=== PATIENT | male | born 1965 | race Caucasian/White ===

== ENCOUNTER 2018-03-15 20:33 | Inpatient (IN) | payer OTHER ==
[~2018-03-15] VITALS: Ht 182.9 cm; Wt 114.3 kg
[~2018-03-15 20:33] MED LIST: ALLOPURINOL300 M1 PO; LISINOPRIL10 M1 PO; LORAZEPAM0.5 M1 PO; METFORMIN HCL500 M3 PO; NAPROXEN500 M2 PO; PERCOCET 5-3251 EACH PO; SEROQUEL200 M1 PO
[2018-03-15 21:00] VITALS: BP 153/96
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
[2018-03-15 21:25] LABS: ABSOLUTE BASOPHIL COUNT 0 /CUMM (0.0-0.2); ABSOLUTE EOSINOPHIL COUNT 0.1 /CUMM (0.0-0.7); ABSOLUTE GRANULOCYTE CT 2.6 /CUMM (1.4-6.5); ABSOLUTE LYMPH COUNT 0.7 /CUMM (1.2-3.4); ABSOLUTE MONOCYTE COUNT 0.5 /CUMM (0.10-0.60); BASOPHIL % 0.6 % (0.0-2.0); EOSINOPHIL % 2.6 % (0-5); HEMATOCRIT 44.2 % (42-52); MEAN CORPUSCULAR HGB 31.7 PG (27.0-31.0); MEAN CORPUSCULAR HGB CONC 33.8 G/DL (33.0-37.0); MEAN CORPUSCULAR VOLUME 93.8 FL (80.0-94.0); MEAN PLATELET VOLUME 7.2 FL (7.4-10.4); PLATELET COUNT 202 /CUMM (130-400); RBC DISTRIBUTION WIDTH 14.4 % (11.5-14.5); RED BLOOD CELL CT 4.71 /CUMM (4.70-6.10); WHITE BLOOD CELL COUNT 3.9 /CUMM (4.8-10.8)
[2018-03-15 22:45] VITALS: BP 108/54
[2018-03-16] VITALS (11 sets, daily range): BP systolic 118–163; BP diastolic 68–93
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
[2018-03-16] MEDS ORDERED: PANTOPRAZOLE SO40 M1 PO (20:34)
[2018-03-16] MEDS ORDERED: TRAZODONE HCL150 M1 PO (20:35)
[2018-03-16] MEDS ORDERED: IBUPROFEN800 M1 PO (20:36)
[2018-03-16] MEDS ORDERED: DOXYCYCLINE HY100 M2 PO (20:38)
[2018-03-16] MEDS ORDERED: PERCOCET 5-3251 EACH PO (20:39)
[2018-03-16] MEDS ORDERED: METFORMIN HCL500 M3 PO (20:47)
[2018-03-16] MEDS ORDERED: LISINOPRIL10 M1 PO (20:51)
[2018-03-16] MEDS ORDERED: ZYPREXA5 M1 PO (20:53)
[2018-03-16] MEDS ORDERED: LEXAPRO5 M1 (20:54)
[2018-03-17] VITALS (12 sets, daily range): BP systolic 139–172; BP diastolic 79–95
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
[2018-03-18] VITALS (8 sets, daily range): BP systolic 134–142; BP diastolic 77–93
--- NOTE | 2018-03-18 09:05 | CP SOUTH PROGRESS NOTE PSYCH ---
Psych (Inpt) Progress Note Progress Note Mental Status Examination steady gait overweight calm and cooperative normal Behavior: normal Quality of speech: normal Affect good range Mood:depressed The patient denied thoughts of suicide. The patient denied violent thoughts or thoughts of homicide. The patient denied hallucinations. He denied feeling paranoid, and he did not seem to have any paranoid delusions, there were no other delusions. The patient was coherent and did not have difficulties with thought organization : He showed reasonable insight and judgment today. He was alert and oriented to time, place, and person. There was no evidence of short-term memory impairment today. Assessment: 52-year-old white male with alcohol use disorder and depression DSM 5 Diagnosis(es): Unspecified bipolar alcohol use dis, severe Treatment Plan: reduce CIWA to Q 4hours/alcohol detox depends on sobriety Orientation: oriented x 3 Cognition: minor attention difficulties Memory Function: no gross deficits Estimate of intellectual functioning: average Assets/Strengths Patient Identified Assets/Strengths: resilient Impression/Plan Impression and Plan: 52-year-old white male with alcohol use disorder and depression - Include all active medical diagnosis that require tx DSM 5 Diagnosis(es): Unspecified bipolar alcohol use dis, severe - Initial Tx Plan for Active Psych & Medical Conditions Treatment Plan: inpatient psych alcohol detox
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
[2018-03-19 07:55] VITALS: BP 140/80
[2018-03-19 12:22] VITALS: BP 145/84
[2018-03-19 12:24] VITALS: BP 140/80; BP 145/84
[2018-03-19] MEDS ORDERED: LISINOPRIL10 M1 PO (12:59)
[2018-03-19] MEDS ORDERED: GABAPENTIN300 M2 PO (12:59)
[2018-03-19] MEDS ORDERED: TRAZODONE HCL100 M1 PO (13:00)
[2018-03-19] MEDS ORDERED: ZOLOFT100 M1 PO (13:00)
[2018-03-19] MEDS ORDERED: METFORMIN HCL500 M3 PO (13:05)
[2018-03-19] MEDS ORDERED: ATIVAN0.5 M1 PO (13:05)
--- NOTE | 2018-03-19 13:10 | SOCIAL WORKER PROG NOTE PSYCH ---
Social Work Progress Note Progress Note Leeroy shared that he has been drinking heavily over the past month. He reports 4 pints of vodka and 2 six packs of beer daily. He was going to work intoxicated and had showed up at his therapists intoxicated. He had a DUI and is scheduled for court tomorrow in [place]. He would like to attend [facility] and get to court tomorrow if possible. Denies current cravings for alcohol and denies withdrawal symptoms. States reasons for drinking revolve around family issues. States his 2 children don't like to talk to him unless they want something. They are grown 24 and 26 years old. He also said he hasn't talked to his Mother in a couple of months either. He said he has been more depressed lately due to some of these issues. He currently lives with his significant other Kristen. They have been together for a little over a year. He denies current SI and states he did make statements apparently under the influence. He talked about wanting help with that. He has been successful in IOP before and is interested in returning to [facility]. He advocated for leaving today to get to him court date tomorrow. Offered to call and speak to Kristen about any concerns she may have surrounding d/ c. Leeroy was okay with a phone conference. Kristen shared that her concerns were related to the possibility of him relapsing. She has no safety concerns when he is not drinking. Dr. Montemayor was there for part of this phone conference as well. Dr. Montemayor let Leeroy know he can order some Naltexone if he is interested to help curb cravings. Leeroy was open to giving that a try. Discussed d/c for today with an [facility] intake tomorrow if one is available in the afternoon. Kristen was okay with picking him up later today around 6pm. Offered Leeroy a list of individual therapists to look at if he has a problem returning to his therapist in [place] due to transportation. Also talked about him being able to utilize [facility]. Leeroy took the list of local therapists and the phone number for [facility]. Mood appears stable to go at this time. Denies any thoughts to hurt himself. An intake at [facility] is scheduled for Tuesday 03/20 at 1:15pm.
--- NOTE | 2018-03-19 13:24 | Patient Discharge Instructions ---
Psych Discharge Inst General Discharge Information Reason for Admission: thoughts of suicide while under the influence Psy Discharge Primary Diag+ unspecified depressive di Psy Discharge Secondary Diag+ Alcohol Use Disorder, Sev Summary Tests/Major Procedures Lab Cholesterol 214 MG/DL H 03/15/182117 Cholesterol/HDL Ratio 4 % 03/15/182117 HDL Cholesterol 53 mg/dL 03/15/182117 Hemoglobin A1c 5.4 % 03/15/182117 LDL Cholesterol Direct 82.06 mg/dL 03/15/182117 LDL Cholesterol, Calc ND mg/dL 03/15/182117 Triglycerides 684 mg/dL H 03/15/182117 Studies Pending at DC: None Patient Instructions Contact Information Your Psychiatrist on [facility] was Sim MYLES,Chauncey * If you are experiencing an emergency related to this hospitalization, please call [phone] to contact the treating psychiatrist or the psychiatrist-on- call. * To Request a copy of your medical records, please contact the Medical Records Department at [phone]. * To request results of studies pending at the time of discharge, please call [phone]. * Continue your Medications until directed to stop by your Healthcare provider. General Medication Information Please continue to take your new medications and your continued home medications , unless otherwise indicated on your discharge medication list, or unless directed by your MD or TRIMMING PRESS OPERATOR to stop them. Special Instructions Diet Diabetic Activity Normal - Tobacco Use Treatment Offered Post DC Medications Offered: Not Applicable Post DC Tobacco Treatment Plan: Not Applicable - EtOH/Drug Use D/O Treatment Offered Post DC Medications Offered: Script Given-See Med List Post DC EtOH/SubAbuse [place] Plan: [facility] SubAbuse/Dual IOP Metabolic Screening ([X]) Not Applicable, patient not on a neuroleptic. Advance Directives Does the Patient have Medical Advance Directives No/Refused further info Does Pt have Psychiatric Advance Directives? No/Refused further info Does Patient have a Designated Surrogate Decision Maker: No Information About Psychiatric Advance Directives Provided? Refused Discharge Plan Post Hospital Treatment Plan: Dual IOP
[2018-03-19 16:26] VITALS: BP 145/82
[2018-03-19 16:27] VITALS: BP 145/82
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
== END 2018-03-19 17:48 | DRG 754 ==
LOC: ERH 20:33 → ERHI 03-16 14:54 → CP SOUTH 03-16 14:54 → EDBEDREQ 03-16 15:21 → ENTRNSPT 03-16 17:36 → CP SOUTH 03-16 17:37 → CMPTRNSPT 03-16 17:51 → ENRESERV 03-16 23:59 → CP SOUTH 03-19 17:48
PROVIDERS: Emergency Medicine
DX: F32.9 Major depressive disorder, single episode, unspecified (principal); F10.10 Alcohol abuse, uncomplicated
CPT/HCPCS: 80307; G0480; J3490

== ENCOUNTER 2018-05-19 20:45 | Emergency (ER) | payer OTHER ==
[~2018-05-19] VITALS: Ht 182.9 cm; Wt 108.9 kg
[~2018-05-19 20:45] MED LIST changes: +ATIVAN0.5 M1 PO; +ATIVAN1 M1 PO; +DOXYCYCLINE HY100 M2 PO; +GABAPENTIN300 M2 PO; +IBUPROFEN800 M1 PO; +LEXAPRO5 M1; +NEURONTIN300 M1 PO; +PANTOPRAZOLE SO40 M1 PO; +TRAZODONE HCL100 M1 PO; +TRAZODONE HCL150 M1 PO; +ZOLOFT100 M1 PO; +ZYPREXA5 M1 PO
--- NOTE | 2018-05-19 21:13 | ED PSYCHIATRIC COMPLAINT ---
History of Present Illness General Chief Complaint: General Adult Stated Complaint: PT IS NOT FEELING GOOD Source: patient, old records Exam Limitations: no limitations Vital Signs & Intake/Output Vital Signs & Intake/Output Vital Signs Date Time Temp Pulse Resp B/P B/P Pulse O2 O2 Flow FiO2 Mean Ox Delivery Rate 05/20 0649 98.0 72 18 133/79 98 Room Air 05/20 0415 97.3 68 18 143/82 98 Room Air 05/20 0217 98.3 72 18 116/68 05/20 0216 98.3 72 18 116/68 97 Room Air 05/20 0028 98.5 80 18 117/69 05/20 0008 98.5 80 18 117/69 98 Room Air 05/19 2249 97.8 73 18 126/73 05/19 2230 97.8 73 18 126/73 97 Room Air 05/19 2130 Room Air Room Air 05/19 2059 97.3 79 16 142/96 97 Room Air ED Intake and Output 05/20 0000 05/19 1200 Intake Total Output Total Balance Patient 240 lb Weight Weight Reported by Patient Measurement Method Allergies Coded Allergies: No Known Allergies (04/27/16) Reconcile Medications Gabapentin (Neurontin) 300 MG CAPSULE 2 CAP PO BID ANXIETY (Reported) Gabapentin 300 MG CAPSULE 3 CAP PO TID ANXIETY (Reported) Lisinopril 10 MG TABLET 1 TAB PO DAILY HTN Lorazepam 0.5 MG TABLET 1 TAB PO QPM SLEEP HELP (Reported) LORazepam (Ativan) 1 MG TAB 1 TAB PO TID withdrawal day 1: 1 tab 3x/day day 2: 1 tab 2x/day day 3: 1 tab day 4: 1 tab Metformin HCl 500 MG TABLET 500 MG PO DAILY DM Sertraline HCl (Zoloft) 100 MG TABLET 1 TAB PO DAILY anxiety/depression Trazodone HCl 100 MG TABLET 100 MG PO 2000 insomnia Triage Note: PT REPORTS TO FEEL SUICIDAL. + ETOH ABUSE, LAST DRANK 2 HRS AGO. STATED TO DRINK SEVERAL PINTS OF VODKA DAILY. Triage Nurses Notes Reviewed? yes HPI: 52M PMH EtOH abuse presents with alcohol intoxication, depression, and suicidal ideation. Giving minimal history, refusing to answer questions. NO active complaints, last drink 2 hours prior. +SI. (Marleny MYLES,Blake) Past History Travel History Traveled to [place] past 21 day No Medical History Any Pertinent Medical History? see below for history Neurological: delerium tremens, ETOH W/D SZ'S EENT: NONE Cardiovascular: hypertension, myocardial infarction Respiratory: NONE Gastrointestinal: NONE Hepatic: NONE Renal: NONE Musculoskeletal: NONE Psychiatric: bipolar disease, depression, ETOH Endocrine: diabetes Blood Disorders: NONE Cancer(s): LYMPHOMA BAG VALVER/Reproductive: NONE History of MRSA: No History of VRE: No History of CDIFF: No Tetanus Vaccine: 09/02/17 Surgical History Surgical History: right knee replacement Psychosocial History Who do you live with Family What is your primary language Tajik Tobacco Use: Never used Family History Family History, If Any: Relation not specified for: *No pertinent family history Hx Contributory? No (Blake Farmer MD) Review of Systems Review of Systems Constitutional: Reports: no symptoms. EENTM: Reports: no symptoms. Respiratory: Reports: no symptoms. Cardiovascular: Reports: no symptoms. GI: Reports: no symptoms. Genitourinary: Reports: no symptoms. Musculoskeletal: Reports: no symptoms. Skin: Reports: no symptoms. Neurological/Psychological: Reports: no symptoms. Hematologic/Endocrine: Reports: no symptoms. Immunologic/Allergic: Reports: no symptoms. All Other Systems: Reviewed and Negative (Blake Farmer MD) Physical Exam Physical Exam General Appearance: well developed/nourished, anxious, mild distress, intoxicated Head: atraumatic, normal appearance Eyes: Bilateral: normal appearance, PERRL, EOMI. 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 yes (Blake Farmer MD) SAD PERSONS SAD PERSONS Response Value Male Sex? yes 1 Previous Attempts/Psych Care yes 1 Rational Thinking Loss? yes 2 Organized/Serious Attempt yes 2 Total 6 SAD PERSONS Done? yes (Kalpana MYLES,Rico Crump) Progress Differential Diagnosis: dementia, drug intoxication, drug overdose, drug withdrawal, electrolyte abnormality, encephalitis, hypoglycemia, hypothyroidism, IC hem/mass/tumor, meningitis Plan of Care: Orders Procedure Date/time Status Heart Healthy Diet 05/20 B Active ED CRISIS PSYCH CONSULT 05/19 2224 Active Continuous Observation Monitor 05/19 2125 Active CIWA 05/19 2112 Active URINE DRUG SCREEN FOR ER ONLY 05/19 2112 Complete ETHANOL 05/19 2112 Complete COMPREHENSIVE METABOLIC PANEL 05/19 2112 Complete CBC WITHOUT DIFFERENTIAL 05/19 2112 Complete Laboratory Tests 05/19/182144: Anion Gap 12, Estimated GFR > 60, BUN/Creatinine Ratio 18.0, Glucose 111 H, Calcium 8.8, Total Bilirubin 0.3, AST 55, ALT 65, Alkaline Phosphatase 56, Total Protein 6.5, Albumin 4.2, Globulin 2.3, Albumin/Globulin Ratio 1.8, CBC w Diff NO MAN DIFF REQ, RBC 4.49 L, MCV 91.3, MCH 32.0 H, MCHC 35.1, RDW 13.3, MPV 7.6, Gran % 71.7, Lymphocytes % 16.5 L, Monocytes % 8.7, Eosinophils % 2.5, Basophils % 0.6, Absolute Granulocytes 3.5, Absolute Lymphocytes 0.8 L, Absolute Monocytes 0.4, Absolute Eosinophils 0.1, Absolute Basophils 0, Serum Alcohol 243.0 05/19/182128: Urine Opiates Screen < 100, Methadone Screen < 40, Barbiturate Screen < 60, Ur Phencyclidine Scrn < 6.00, Amphetamines Screen < 100, U Benzodiazepines Scrn < 85, Urine Cocaine Screen < 50, Urine Cannabis Screen < 5.00 (Marleny MYLES,Blake) Initial ED EKG: none (Rico Villeda DO) Comments: 05/20/2018 8:00:50 AM patient signed out to me by Dr. 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 Leeroy wishes to leave. He admits to heavy alcohol intake with a resulting argument with his fiance with whom he lives. He denies suicide intent currently. He acknowledges a full wishes of his actions last night. He denies any prior suicide attempts. He has a job currently. He feels he has a stable home situation with his fiance. He tells me that he spoke with her roughly an hour ago and she is expecting his return. He denies past history of depression or currently feeling depressed. He has declined crisis evaluation for alcohol use or other psychiatric issues such as depression. I feel he shows good insight into last night's activities and has assured me that he is safe for discharge. The patient's sad persons score is calculated at 6 revealing moderate risk I feel most of this was due to his acute alcohol intoxication. (Kalpana MYLES,Rico Crump) Departure Departure Condition: Stable Referrals: Matt MYLES,Henny (PCP/Family) (Marleny MYLES,Blake) Departure Comments 05/20/18 4 AM The patient was signed out to me at 7 PM. He will be signed out to Dr. Acuna at 7 AM. He is pending evaluation and disposition by crisis. (Ronal FRASER,Rico Miller) Departure Disposition: HOME OR SELF CARE Clinical Impression Primary Impression: Alcohol intoxication Qualifiers: Complication of substance-induced condition: uncomplicated Qualified Code: F10.920 - Alcohol use, unspecified with intoxication, uncomplicated Secondary Impressions: Poor impulse control, Suicidal ideation Additional Instructions: Try to cut down on your alcohol intake. Follow-up with your primary care physician for reevaluation this week. Return if any concerns or sudden worsening. Please note that there might be incidental findings in your evaluation that are unrelated to the current emergency department visit. Please notify your primary care doctor about this emergency department visit in order to obtain and review all of the testing performed so that these incidental findings can be monitored as needed. If you had an x-ray performed, please understand that some fractures or other findings may not be seen on the initial set of x-rays. If your symptoms persist you might need a repeat set of x-rays to check for such a fracture. If you had a laceration evaluated, please understand that foreign bodies such as glass or wood may not be visible to the naked eye or on plain x-rays. If the wound becomes red, swollen, increasingly more painful or if there is any drainage from the wound, please have it reevaluated by a physician for the possibility of a retained foreign body. If you're unable to follow up as outlined in the discharge instructions please return to the emergency department. Thank you for choosing the [facility] Emergency Department for your care. It was a pleasure to serve you today. Rico Acuna M.D. [facility] Departure Forms: COUNSELING SERVICES REFERENCE Customer Survey DETOX FACILITIES LIST General Discharge Information (Kalpana MYLES,Rico Crump)
[2018-05-19 21:55] LABS: ABSOLUTE BASOPHIL COUNT 0 /CUMM (0.0-0.2); ABSOLUTE EOSINOPHIL COUNT 0.1 /CUMM (0.0-0.7); ABSOLUTE GRANULOCYTE CT 3.5 /CUMM (1.4-6.5); ABSOLUTE LYMPH COUNT 0.8 /CUMM (1.2-3.4); ABSOLUTE MONOCYTE COUNT 0.4 /CUMM (0.10-0.60); BASOPHIL % 0.6 % (0.0-2.0); EOSINOPHIL % 2.5 % (0-5); GRANULOCYTE % 71.7 % (42.2-75.2); MEAN CORPUSCULAR HGB CONC 35.1 G/DL (33.0-37.0); MEAN CORPUSCULAR VOLUME 91.3 FL (80.0-94.0); MEAN PLATELET VOLUME 7.6 FL (7.4-10.4); PLATELET COUNT 185 /CUMM (130-400); RBC DISTRIBUTION WIDTH 13.3 % (11.5-14.5); RED BLOOD CELL CT 4.49 /CUMM (4.70-6.10); WHITE BLOOD CELL COUNT 4.8 /CUMM (4.8-10.8)
[2018-05-20 08:06] VITALS: BP 120/74
== END 2018-05-20 08:07 ==
LOC: ERH 20:45
PROVIDERS: Internal Medicine
DX: F10.129 Alcohol abuse with intoxication, unspecified (principal)
CPT/HCPCS: 80307; G0480

== ENCOUNTER 2018-06-09 11:43 | Observation (INO) | payer OTHER ==
[~2018-06-09] VITALS: Ht 175.3 cm; Wt 90.7 kg
--- NOTE | 2018-06-09 11:52 | ED PSYCHIATRIC COMPLAINT ---
History of Present Illness General Chief Complaint: Psychiatric Related Complaint Stated Complaint: "I JUST DONT FEEL GOOD, LIFE ISNT GOOD" Source: patient, old records Exam Limitations: intoxication Vital Signs & Intake/Output Vital Signs & Intake/Output Vital Signs Date Time Temp Pulse Resp B/P B/P Pulse O2 O2 Flow FiO2 Mean Ox Delivery Rate 06/10 1000 98.6 86 18 163/82 98 Room Air 08/05 0959 98.6 86 18 163/82 08/05 0739 97.9 80 18 128/72 08/05 0738 97.9 80 18 128/72 98 Room Air 08/05 0602 98.2 84 18 132/70 08/05 0602 98.2 84 18 132/70 97 Room Air 08/05 0406 98.1 83 18 140/84 08/05 0404 98.1 83 18 140/84 97 Room Air 08/05 0132 98.1 92 20 128/72 08/05 0132 98.1 92 20 128/72 96 Room Air 08/04 2326 98.1 94 16 117/67 99 Room Air 08/04 2325 98.1 94 16 117/67 08/04 2154 Room Air 08/04 2152 98.2 93 18 137/76 08/04 2151 98.2 93 18 137/76 97 Room Air 08/04 1929 105 18 146/84 97 Room Air 08/04 1739 157/102 08/04 1623 98.2 94 18 157/102 98 Room Air 08/04 1622 98.2 94 18 157/102 08/04 1431 97.7 88 18 123/73 95 Room Air 08/04 1213 Room Air 08/04 1146 96.5 90 15 150/99 94 Room Air ED Intake and Output 06/10 0000 0804 1200 Intake Total Output Total Balance Patient 200 lb 260 lb Weight Weight Reported by Patient Measurement Method Allergies Coded Allergies: No Known Allergies (04/27/16) Reconcile Medications Carbamazepine (Tegretol XR) 200 MG TAB.ER.12H 1 TAB PO BID UNKN (Reported) Gabapentin (Neurontin) 300 MG CAPSULE 2 CAP PO BID ANXIETY (Reported) Gabapentin 300 MG CAPSULE 3 CAP PO TID ANXIETY (Reported) Lisinopril 10 MG TABLET 1 TAB PO DAILY HTN [place] Carbonate 600 MG CAPSULE 1 CAP PO DAILY MENTAL HEALTH (Reported) Lorazepam 0.5 MG TABLET 1 TAB PO QPM SLEEP HELP (Reported) Melatonin 10 MG TABLET 1 TAB PO QPM SUPPLEMENT (Reported) Metformin HCl 500 MG TABLET 500 MG PO DAILY DM Naltrexone HCl 50 MG TABLET 1 TAB PO QAM MENTAL HEALTH (Reported) Rosuvastatin Calcium (Crestor) 20 MG TABLET 1 TAB PO DAILY CHOL (Reported) Sertraline HCl (Zoloft) 100 MG TABLET 1 TAB PO DAILY anxiety/depression Trazodone HCl 150 MG TABLET 1 TAB PO QPM MENTAL HEALTH/SLEEP (Reported) Triage Note: PT TO ED, ADMITS TO HEAVY ETOH USE TODAY. STATES, "LIFE ISNT GOOD." "DONT WANT TO DRINK ANYMORE." DENIES SI/HI. Triage Nurses Notes Reviewed? yes Onset: Gradual Duration: constant Severity: severe Severity Numbers: 10 HPI: Patient is a 52-year-old male with a past medical history of alcohol abuse depression suicide ideation type 2 diabetes with neuropathy non-Hodgkin's lymphoma, hypertension who presents emergency room with concerns of significant alcohol ingestion prior to arrival and requests of alcohol detox and suicide ideation and depression. Patient does not recall his last seizure however does have a seizure history from previous records from withdrawal of EtOH. Denies any homicidal ideation patient's history is limited due to intoxication (Ariel Seaman) Past History Travel History Traveled to [place] past 21 day No Medical History Any Pertinent Medical History? 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 No (Ariel Seaman) Review of Systems Review of Systems Constitutional: Reports: no symptoms. EENTM: Reports: no symptoms. Respiratory: Reports: no symptoms. Cardiovascular: Reports: no symptoms. GI: Reports: no symptoms. Genitourinary: Reports: no symptoms. Musculoskeletal: Reports: no symptoms. Skin: Reports: no symptoms. Neurological/Psychological: Reports: see HPI. Hematologic/Endocrine: Reports: no symptoms. Immunologic/Allergic: Reports: no symptoms. All Other Systems: Reviewed and Negative (Ariel Seaman) Physical Exam Physical Exam General Appearance: intoxicated Head: atraumatic Eyes: Bilateral: normal appearance, PERRL. Ears, Nose, Throat: hearing grossly normal Neurological/Psychiatric: calm Appearance/Memory/Insight: disheveled Behavoir/Eye Contact/Speech: cooperative, normal speech Thoughts/Hallucinations: normal thought pattern, no apparent hallucination SAD PERSONS SAD PERSONS Response Value Male Sex? yes 1 Age <19 or >45 years? yes 1 Depression/Hopelessness? yes 2 Previous Attempts/Psych Care yes 1 Excessive Ethanol/Drug Use? yes 1 Single//? yes 1 Social Support? has no support 1 Stated Future Intent? yes 2 Total 10 SAD PERSONS Done? yes (Ariel Seaman) Progress Differential Diagnosis: drug intoxication, drug overdose, drug withdrawal, electrolyte abnormality, encephalitis, hypoglycemia, hypothyroidism, IC hem/mass /tumor, meningitis Plan of Care: Orders Procedure Date/time Status FingerStick- Glucose 06/10 0134 Active Heart Healthy Diet 06/[address] in observation 06/09 1441 Active Patient Data 06/09 1441 Active Vital Signs 06/09 1441 Active Code Status 06/09 1441 Active EKG 06/09 1304 Active LIPASE 06/09 1231 Complete Intake & Output 06/09 1212 Active Patient Safety Monitor 06/09 1146 Active CIWA 06/09 1146 Active URINE DRUGS OF ABUSE 06/09 1146 Complete ETHANOL 06/09 1146 Complete COMPREHENSIVE METABOLIC PANEL 06/09 1146 Complete CBC WITHOUT DIFFERENTIAL 06/09 1146 Complete Current Medications Sig/Reid Start time Last Medication Dose Stop Time Status Admin Lorazepam 1 MG Q6H 06/12 0000 AC (Ativan) 06/12 1201 Lorazepam 1.5 MG Q12H 06/11 0600 AC (Ativan) 06/11 1801 Lorazepam 1 MG Q12H / 0000 AC (Ativan) 06/11 1201 Lorazepam 2 MG ONCE ONE 06/10 1800 AC (Ativan) 06/10 180 Lorazepam 1.5 MG Q6H 06/10 0000 AC 06/10 (Ativan) 06/10 1201 0629 Laboratory Tests 06/09/18 1322: Urine Opiates Screen < 100, Methadone Screen < 40, Barbiturate Screen < 60, Ur Phencyclidine Scrn < 6.00, Amphetamines Screen < 100, U Benzodiazepines Scrn < 85, Urine Cocaine Screen 172, Urine Cannabis Screen < 5.00 06/09/18 1231: Anion Gap 13, Estimated GFR > 60, BUN/Creatinine Ratio 26.0 H, Glucose 93, Calcium 8.5, Total Bilirubin 1.1, AST 189 H, ALT 148 H, Alkaline Phosphatase 97, Total Protein 6.9, Albumin 4.2, Globulin 2.7, Albumin/Globulin Ratio 1.6, Lipase 102, CBC w Diff NO MAN DIFF REQ, RBC 5.31, MCV 92.3, MCH 32.4 H, MCHC 35.2, RDW 13.4, MPV 7.9, Gran % 65.2, Lymphocytes % 22.1, Monocytes % 11.0 H, Eosinophils % 1.4, Basophils % 0.3, Absolute Granulocytes 3.3, Absolute Lymphocytes 1.1 L, Absolute Monocytes 0.6, Absolute Eosinophils 0.1, Absolute Basophils 0, Serum Alcohol 362.0 06/09/18 1208: Lipase Cancelled Initial [facility] scoring is noted to be 10 patient is significantly intoxicated patient does state hospital policy to be admitted however due to state insurance that sobriety is first warranted IV Ativan was given patient does state that he did not take his lisinopril 10 MG today Patient does have elevated blood pressure he was given by mouth lisinopril Please note that while becoming sober patient does indicate with me at 1930 that he wanted to leave patient's was to obtain a crisis consultation He was discussed with the risks of leaving AGAINST MEDICAL ADVICE and which then he backtracked AND THEN WANTED TO BE evaluated to stay for alcohol detox Patient was given the Ativan EtOH withdrawal protocol He will warrant a psychiatric evaluation during his admission Patient requires [facility] approval in which this will be evaluated tomorrow per case management discussed disposition plan with patient who was aware and agrees Initial ED EKG: normal intervals, normal p-waves Hand-Off Endorsed To: Gilberto Donaldson MD Endorsed Time: 2300 Pending: consult (Ariel Seaman) Hand-Off Endorsed To: Rico Acuna MD Endorsed Time: 0700 Pending: other (MICHAEL, case management) (Anika MYLES,Gilberto) Comments: 06/10/2018 7:55:55 AM patient signed out to me by Dr. 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 06/10/2018 10:30:20 AM I was asked to reevaluate Toi. He is now requesting to leave and has declined inpatient detox from alcohol. He wishes to cease drinking so I will provide a prescription for Ativan. He adamantly denies any intent behind his suicide ideation upon presentation, stating that it happens when he is drunk. (Kalpana MYLES,Rico Crump) Departure Departure Condition: Guarded Referrals: Henny Gutierrez MD (PCP/Family) Departure Forms: Customer Survey General Discharge Information (Alexander PURI,Ariel) Departure Disposition: HOME OR SELF CARE Clinical Impression Primary Impression: Alcohol dependence with withdrawal Qualifiers: Complication of substance-induced condition: uncomplicated Qualified Code: F10.230 - Alcohol dependence with withdrawal, uncomplicated Secondary Impressions: Depression Qualifiers: Depression Type: unspecified Qualified Code: F32.9 - Major depressive disorder, single episode, unspecified Hypertension Qualifiers: Hypertension type: unspecified Qualified Code: I10 - Essential ( primary) hypertension Suicidal ideation Additional Instructions: Do not drink alcohol. Ativan as prescribed to prevent withdrawal symptoms. Follow-up with your primary care physician tomorrow for reevaluation. Contacted detox program as soon as possible. Return if any concerns or sudden worsening. Please note that there might be incidental findings in your evaluation that are unrelated to the current emergency department visit. Please notify your primary care doctor about this emergency department visit in order to obtain and review all of the testing performed so that these incidental findings can be monitored as needed. If you had an x-ray performed, please understand that some fractures or other findings may not be seen on the initial set of x-rays. If your symptoms persist you might need a repeat set of x-rays to check for such a fracture. If you had a laceration evaluated, please understand that foreign bodies such as glass or wood may not be visible to the naked eye or on plain x-rays. If the wound becomes red, swollen, increasingly more painful or if there is any drainage from the wound, please have it reevaluated by a physician for the possibility of a retained foreign body. If you're unable to follow up as outlined in the discharge instructions please return to the emergency department. Thank you for choosing the [facility] Emergency Department for your care. It was a pleasure to serve you today. Rico Acuna M.D. [facility] Prescriptions: Current Visit Scripts LORazepam (Ativan) 2 TAB PO TID PRN alcohol withdrawal #16 TAB day 1: 2 tab 3X/day day 2: 1 TAB 4x/day day 3: 1 TAB 3x/day day 4: 1 TAB 2X/day day 5 :1 TAB (Kalpana MYLES,Rico Crump) Critical Care Note Critical Care Note Critical Care Time: 30-74 min (Alexander PURI,Ariel) ED Attending Observation Initial Observation Note: I have seen and personally examined TOI CUEVAS on 06/09/18 at 1453. I agree with the current emergency department documentation. The disposition (admission or discharge) is uncertain at this time, he needs a period of observation for the following reason(s): [Severe alcohol intoxication, he needs to be observed with CIWA scores and assessment repeat neurological evaluation] The ED Nurse caring for this patient has been personally informed as to what the patient is being observed for. (Rico Villeda DO)
[2018-06-09 12:42] LABS: ABSOLUTE BASOPHIL COUNT 0 /CUMM (0.0-0.2); ABSOLUTE EOSINOPHIL COUNT 0.1 /CUMM (0.0-0.7); ABSOLUTE GRANULOCYTE CT 3.3 /CUMM (1.4-6.5); ABSOLUTE LYMPH COUNT 1.1 /CUMM (1.2-3.4); ABSOLUTE MONOCYTE COUNT 0.6 /CUMM (0.10-0.60); BASOPHIL % 0.3 % (0.0-2.0); EOSINOPHIL % 1.4 % (0-5); GRANULOCYTE % 65.2 % (42.2-75.2); MEAN CORPUSCULAR HGB 32.4 PG (27.0-31.0); MEAN CORPUSCULAR HGB CONC 35.2 G/DL (33.0-37.0); MEAN CORPUSCULAR VOLUME 92.3 FL (80.0-94.0); MEAN PLATELET VOLUME 7.9 FL (7.4-10.4); PLATELET COUNT 192 /CUMM (130-400); RBC DISTRIBUTION WIDTH 13.4 % (11.5-14.5); RED BLOOD CELL CT 5.31 /CUMM (4.70-6.10); WHITE BLOOD CELL COUNT 5.1 /CUMM (4.8-10.8)
[2018-06-09] MEDS ORDERED: NALTREXONE HCL50 M1 PO (14:51)
[2018-06-09] MEDS ORDERED: MELATONIN10 M2 PO (14:51)
[2018-06-09] MEDS ORDERED: LITHIUM CARBON600 M1 PO (14:51)
[2018-06-09] MEDS ORDERED: TEGRETOL XR200 M1 PO (14:51)
[2018-06-09] MEDS ORDERED: TRAZODONE HCL150 M1 PO (14:52)
[2018-06-09] MEDS ORDERED: CRESTOR20 M2 PO (14:52)
[2018-06-09 16:22] VITALS: BP 157/102
[2018-06-09 21:52] VITALS: BP 137/76
[2018-06-09 23:25] VITALS: BP 117/67
[2018-06-10 01:32] VITALS: BP 128/72
[2018-06-10 04:06] VITALS: BP 140/84
[2018-06-10 06:02] VITALS: BP 132/70
[2018-06-10 07:39] VITALS: BP 128/72
[2018-06-10 09:59] VITALS: BP 163/82
[2018-06-10 10:00] VITALS: BP 163/82
[2018-06-10] MEDS ORDERED: ATIVAN1 M1 PO (10:37)
== END 2018-06-10 10:46 ==
LOC: ERH 11:43 → ERHI 14:41
PROVIDERS: Physician Assistant Medical
DX: F10.230 Alcohol dependence with withdrawal, uncomplicated (principal); F32.9 Major depressive disorder, single episode, unspecified; I10 Essential (primary) hypertension
CPT/HCPCS: 6090; 80307; 93005; 93010; 96375; 96376; G0378; G0480; J2405

== ENCOUNTER 2018-06-16 11:24 | Emergency (ER) | payer OTHER ==
[~2018-06-16] VITALS: Ht 182.9 cm; Wt 117.9 kg
[~2018-06-16 11:24] MED LIST changes: +CRESTOR20 M2 PO; +LITHIUM CARBON600 M1 PO; +MELATONIN10 M2 PO; +NALTREXONE HCL50 M1 PO; +TEGRETOL XR200 M1 PO
--- NOTE | 2018-06-16 11:42 | ED GENERAL ADULT ---
History of Present Illness General Chief Complaint: ETOH/Drug Related Complaint Stated Complaint: PT REQUESTING DETOX FROM ETOH Source: patient, old records Exam Limitations: poor historian, intoxication Vital Signs & Intake/Output Vital Signs & Intake/Output Vital Signs Date Time Temp Pulse Resp B/P B/P Pulse O2 O2 Flow FiO2 Mean Ox Delivery Rate 06/16 1641 97.2 89 18 113/68 97 Room Air 06/16 1512 97.8 78 18 88/50 93 Room Air 06/16 1500 97.8 78 18 88/50 06/16 1204 97.5 84 20 107/67 06/16 1158 96 Room Air 06/16 1126 97.5 84 20 107/67 96 Room Air Allergies Coded Allergies: No Known Allergies (04/27/16) Reconcile Medications Carbamazepine (Tegretol XR) 200 MG TAB.ER.12H 1 TAB PO BID UNKN (Reported) Gabapentin (Neurontin) 300 MG CAPSULE 2 CAP PO BID ANXIETY (Reported) Gabapentin 300 MG CAPSULE 3 CAP PO TID ANXIETY (Reported) Lisinopril 10 MG TABLET 1 TAB PO DAILY HTN [place] Carbonate 600 MG CAPSULE 1 CAP PO DAILY MENTAL HEALTH (Reported) Lorazepam 0.5 MG TABLET 1 TAB PO QPM SLEEP HELP (Reported) LORazepam (Ativan) 1 MG TAB 2 TAB PO TID PRN alcohol withdrawal day 1: 2 tab 3X/day day 2: 1 TAB 4x/day day 3: 1 TAB 3x/day day 4: 1 TAB 2X/day day 5 :1 TAB Melatonin 10 MG TABLET 1 TAB PO QPM SUPPLEMENT (Reported) Metformin HCl 500 MG TABLET 500 MG PO DAILY DM Naltrexone HCl 50 MG TABLET 1 TAB PO QAM MENTAL HEALTH (Reported) Rosuvastatin Calcium (Crestor) 20 MG TABLET 1 TAB PO DAILY CHOL (Reported) Sertraline HCl (Zoloft) 100 MG TABLET 1 TAB PO DAILY anxiety/depression Trazodone HCl 150 MG TABLET 1 TAB PO QPM MENTAL HEALTH/SLEEP (Reported) Triage Note: PT TO ED REQUESTING ETOH DETOX. LAST DRINK 20 MINS AGO, UNABLE TO QUANTIFY AMOUNT. DENIES DRUG USE. DENIES SI/HI. DENIES SEIZURES WITH ETOH DETOX. PT APPEARS VERY INTOXICATED/SLURRING WORDS. Triage Nurses Notes Reviewed? yes HPI: This is a 52-year-old male with history of chronic alcoholism, depression, hypertension, type 2 diabetes complicated by neuropathy, presented to the emergency department with alcohol intoxication and request for detox. Patient was recently seen in the emergency department for similar presentation, at that time was endorsing suicidality. He was ultimately discharged with a taper of Ativan, returns today acutely intoxicated with alcohol, denies any coingestions or recent trauma/illness/travel. Upon presentation, full review of systems is limited by alcohol intoxication. (Andres Lai MD) Past History Travel History Traveled to [place] past 21 day No Medical History Any Pertinent Medical History? 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 No (Andres Lai MD) Review of Systems Review of Systems Constitutional: Reports: no symptoms. Comments Review of systems limited by acute intoxication upon arrival. He does deny any acute suicidality or homicidality. He further states that he has had no auditory or visual hallucinations. He denies any coingestions or recent trauma. He states that he "drinks nonstop". (Andres Lai MD) Physical Exam Physical Exam General Appearance: well developed/nourished, no apparent distress, alert, comfortable, intoxicated, obese Head: atraumatic, normal appearance Eyes: Bilateral: normal appearance. Ears, Nose, Throat: hearing grossly normal, moist mucus membranes Neck: supple, full range of motion Respiratory: no respiratory distress Cardiovascular: regular rate/rhythm, normal peripheral pulses Gastrointestinal: non-tender Rectal: deferred Back: normal range of motion Extremities: normal range of motion Neurologic/Psych: no motor/sensory deficits, awake, alert, oriented x 3 Skin: intact, warm/dry Comments: Slurred speech, ataxia, smells of alcohol, moderately disheveled middle-aged male, no acute distress. Core Measures ACS in differential dx? No CVA/TIA Diagnosis: No Sepsis Present: No Sepsis Focused Exam Completed? No (Ming MYLES,Andres) Progress Differential Diagnoses I considered the following diagnoses in my evaluation of the patient: Alcohol intoxication, lower suspicion at this time for polysubstance abuse. Mild concern for metabolic derangement or occult traumatic process. No obvious suicidality homicidality or psychosis at this time. Plan of Care: Orders Procedure Date/time Status Regular Diet 06/16 D Active Continuous Observation Monitor 06/16 1422 Active Vital Signs 06/16 1144 Active CIWA 06/16 1144 Active Code Status 06/16 1144 Active URINE DRUGS OF ABUSE 06/16 1128 Complete ETHANOL 06/16 1128 Complete COMPREHENSIVE METABOLIC PANEL 06/16 112 Complete CBC WITHOUT DIFFERENTIAL 06/16 1128 Complete Laboratory Tests 06/16/18 1225: Urine Opiates Screen < 100, Methadone Screen < 40, Barbiturate Screen < 60, Ur Phencyclidine Scrn < 6.00, Amphetamines Screen < 100, U Benzodiazepines Scrn > 800 H, Urine Cocaine Screen < 50, Urine Cannabis Screen < 5.00 06/16/18 1219: Anion Gap 9, Estimated GFR > 60, BUN/Creatinine Ratio 15.0, Glucose 158 H, Calcium 9.3, Total Bilirubin 0.6, AST 43, ALT 60, Alkaline Phosphatase 79, Total Protein 6.7, Albumin 4.1, Globulin 2.6, Albumin/Globulin Ratio 1.6, CBC w Diff NO MAN DIFF REQ, RBC 4.23 L, MCV 93.6, MCH 32.4 H, MCHC 34.6, RDW 14.1, MPV 8.9, Gran % 78.5 H, Lymphocytes % 9.4 L, Monocytes % 10.8 H, Eosinophils % 0.8, Basophils % 0.5, Absolute Granulocytes 5.5, Absolute Lymphocytes 0.7 L, Absolute Monocytes 0.8 H, Absolute Eosinophils 0.1, Absolute Basophils 0, Serum Alcohol 232.0 Plan for basic labs, close monitoring for withdrawal, reassessment, CIWA. Disposition pending clinical course and reassessment. Patient achieves clinical sobriety at 4:30 PM. On reassessment, there is no evidence of withdrawal symptoms. He is discharged with detox program information, states that he will walk home. He has a steady gait, clear sensorium and review of systems at this time reveals no new findings. He continues to deny any acute psychiatric complaints. Return precautions are provided. Initial ED EKG: none (Andres Lai MD) Departure Departure Time of Disposition: 1626 Disposition: HOME OR SELF CARE Condition: Stable Clinical Impression Primary Impression: Alcohol intoxication Referrals: Henny Gutierrez MD (PCP/Family) Departure Forms: Customer Survey General Discharge Information (Andres Lai MD) Resident Co-Sign Statement Statement: ED Attending supervision documentation- [] I saw and evaluated the patient. I have also reviewed all the pertinent lab results and diagnostic results. I agree with the findings and the plan of care as documented in the Resident's documentation. [X] I have reviewed the ED Record and agree with the Resident's documentation. [] Additions or exceptions (if any) to the Resident's note and plan are summarized below: [] (Anders MYLES,Danny Duran) Critical Care Note Critical Care Note Critical Care Time: non-applicable (Andres Lai MD)
[2018-06-16 12:45] LABS: ABSOLUTE BASOPHIL COUNT 0 /CUMM (0.0-0.2); ABSOLUTE EOSINOPHIL COUNT 0.1 /CUMM (0.0-0.7); ABSOLUTE GRANULOCYTE CT 5.5 /CUMM (1.4-6.5); ABSOLUTE LYMPH COUNT 0.7 /CUMM (1.2-3.4); ABSOLUTE MONOCYTE COUNT 0.8 /CUMM (0.10-0.60); BASOPHIL % 0.5 % (0.0-2.0); EOSINOPHIL % 0.8 % (0-5); GRANULOCYTE % 78.5 % (42.2-75.2); MEAN CORPUSCULAR HGB 32.4 PG (27.0-31.0); MEAN CORPUSCULAR HGB CONC 34.6 G/DL (33.0-37.0); MEAN CORPUSCULAR VOLUME 93.6 FL (80.0-94.0); MEAN PLATELET VOLUME 8.9 FL (7.4-10.4); PLATELET COUNT 161 /CUMM (130-400); RBC DISTRIBUTION WIDTH 14.1 % (11.5-14.5); RED BLOOD CELL CT 4.23 /CUMM (4.70-6.10); WHITE BLOOD CELL COUNT 7.1 /CUMM (4.8-10.8)
[2018-06-16 13:01] LABS: HEMATOCRIT 39.6 % (42-52)
[2018-06-16 16:41] VITALS: BP 113/68
== END 2018-06-16 16:45 ==
LOC: ERH 11:24
PROVIDERS: Physician Assistant Medical
DX: F10.129 Alcohol abuse with intoxication, unspecified (principal)
CPT/HCPCS: 80307; G0480; J3360

== ENCOUNTER 2018-06-17 18:33 | Emergency (ER) | payer OTHER ==
[2018-06-17 20:15] LABS: ABSOLUTE BASOPHIL COUNT 0 /CUMM (0.0-0.2); ABSOLUTE EOSINOPHIL COUNT 0.1 /CUMM (0.0-0.7); ABSOLUTE GRANULOCYTE CT 2.4 /CUMM (1.4-6.5); ABSOLUTE LYMPH COUNT 0.7 /CUMM (1.2-3.4); ABSOLUTE MONOCYTE COUNT 0.6 /CUMM (0.10-0.60); BASOPHIL % 0.7 % (0.0-2.0); EOSINOPHIL % 1.9 % (0-5); GRANULOCYTE % 62.5 % (42.2-75.2); HEMATOCRIT 37.4 % (42-52); MEAN CORPUSCULAR HGB 32.3 PG (27.0-31.0); MEAN CORPUSCULAR HGB CONC 34.7 G/DL (33.0-37.0); MEAN CORPUSCULAR VOLUME 93.1 FL (80.0-94.0); MEAN PLATELET VOLUME 8.1 FL (7.4-10.4); PLATELET COUNT 185 /CUMM (130-400); RBC DISTRIBUTION WIDTH 14.4 % (11.5-14.5); RED BLOOD CELL CT 4.02 /CUMM (4.70-6.10); WHITE BLOOD CELL COUNT 3.8 /CUMM (4.8-10.8)
--- NOTE | 2018-06-18 00:52 | ED PSYCHIATRIC COMPLAINT ---
See Addendum History of Present Illness General Chief Complaint: Psychiatric Related Complaint Stated Complaint: +ETOH, +SI Source: patient, old records Exam Limitations: no limitations Vital Signs & Intake/Output Vital Signs & Intake/Output Vital Signs Date Time Temp Pulse Resp B/P B/P Pulse O2 O2 Flow FiO2 Mean Ox Delivery Rate 06/18 0449 98.0 77 20 132/78 06/18 0200 97.9 89 18 118/64 06/18 0200 97.9 89 16 118/64 95 Room Air 06/17 2330 72 18 140/70 06/17 2330 72 16 140/78 97 Room Air 06/17 1944 Room Air 06/17 1838 98.7 109 18 129/77 98 Room Air ED Intake and Output 06/18 0000 06/17 1200 Intake Total Output Total Balance Patient 255 lb Weight Allergies Coded Allergies: No Known Allergies (04/27/16) Reconcile Medications Carbamazepine (Tegretol XR) 200 MG TAB.ER.12H 1 TAB PO BID UNKN (Reported) Gabapentin (Neurontin) 300 MG CAPSULE 2 CAP PO BID ANXIETY (Reported) Gabapentin 300 MG CAPSULE 3 CAP PO TID ANXIETY (Reported) Lisinopril 10 MG TABLET 1 TAB PO DAILY HTN [place] Carbonate 600 MG CAPSULE 1 CAP PO DAILY MENTAL HEALTH (Reported) Lorazepam 0.5 MG TABLET 1 TAB PO QPM SLEEP HELP (Reported) LORazepam (Ativan) 1 MG TAB 2 TAB PO TID PRN alcohol withdrawal day 1: 2 tab 3X/day day 2: 1 TAB 4x/day day 3: 1 TAB 3x/day day 4: 1 TAB 2X/day day 5 :1 TAB Melatonin 10 MG TABLET 1 TAB PO QPM SUPPLEMENT (Reported) Metformin HCl 500 MG TABLET 500 MG PO DAILY DM Naltrexone HCl 50 MG TABLET 1 TAB PO QAM MENTAL HEALTH (Reported) Rosuvastatin Calcium (Crestor) 20 MG TABLET 1 TAB PO DAILY CHOL (Reported) Sertraline HCl (Zoloft) 100 MG TABLET 1 TAB PO DAILY anxiety/depression Trazodone HCl 150 MG TABLET 1 TAB PO QPM MENTAL HEALTH/SLEEP (Reported) Triage Note: 52M WELL KNOWN TO ED+ RETURNS TO ED FOR ETOH, ARRIVES SO INTOXICATED HE IS UNABLE TO GET INTO WHEELCHAIR PROVIDED. STARTS STATING "I JUST WANT TO KILL MYSELF". STATES "I HAVE A LOT OF PAIN IN MY LIFE" INCLUDING HIP PAIN. DENIES HX W/D SEIZURES BUT HAS HAD HALLUCINATIONS AND REPORTS THEM CURRENTLY (VISUAL). DENIES COMMAND AH. DENIES ILLICIT DRUGS. TEARFUL IN TRIAGE, STATES HE WANTS TO KILL HIS EX FOR HURTING HIM. DENIES ANY CONTACT WITH HER. DENIES ACCESS TO FIREARMS Triage Nurses Notes Reviewed? yes Onset: Abrupt Duration: day(s): (1), constant, continues in ED, getting worse Timing: recent history Severity: moderate, severe HPI: 52-year-old male history of alcohol dependence presents intoxicated requesting detox and endorsing suicidal ideation. Patient was just seen here yesterday requesting detox at that time is not suicidal. He ultimately did not meet current criteria for admission and was discharged with instructions to follow-up as an outpatient. Patient states he left and started drinking immediately. He states that he has lots of pain in his life and is angry at his ex- are hurting him. He reports that he wants to kill himself denies a plan. He also reports he wants to kill his ex-. He denies any chest pain or shortness of breath. Does note some visual hallucinations and auditory hallucinations. He is unable to quantify how much he drank. Denies any history of withdrawal seizures denies drug abuse. Patient is severely intoxicated history is limited. (Emmanuel Cedillo) Past History Travel History Traveled to [place] past 21 day No Medical History Any Pertinent Medical History? 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 No (Emmanuel Cedillo) Review of Systems Review of Systems Constitutional: Reports: no symptoms. EENTM: Reports: no symptoms. Respiratory: Reports: no symptoms. Cardiovascular: Reports: no symptoms. GI: Reports: no symptoms. Genitourinary: Reports: no symptoms. Musculoskeletal: Reports: no symptoms. Skin: Reports: no symptoms. Neurological/Psychological: Reports: depressed. Hematologic/Endocrine: Reports: no symptoms. Immunologic/Allergic: Reports: no symptoms. All Other Systems: Reviewed and Negative (Emmanuel Cedillo) Physical Exam Physical Exam General Appearance: well developed/nourished, no apparent distress, alert, awake , intoxicated Head: atraumatic, normal appearance Eyes: Bilateral: normal appearance, PERRL, EOMI. Ears, Nose, Throat: hearing grossly normal Neck: normal inspection, supple, full range of motion Respiratory: normal breath sounds, chest non-tender, no respiratory distress, lungs clear Cardiovascular: regular rate/rhythm, normal peripheral pulses Gastrointestinal: soft, non-tender Extremities: normal range of motion Neurological/Psychiatric: no motor/sensory deficits, awake, alert, TEARFUL, DEPRESSED Appearance/Memory/Insight: disheveled, impaired insight Behavoir/Eye Contact/Speech: avoids eye contact, normal speech, refused to answer Thoughts/Hallucinations: visual hallucinations Skin: intact, normal color, warm/dry SAD PERSONS SAD PERSONS Response Value Male Sex? yes 1 Age <19 or >45 years? yes 1 Depression/Hopelessness? yes 2 Previous Attempts/Psych Care yes 1 Excessive Ethanol/Drug Use? yes 1 Rational Thinking Loss? yes 2 Social Support? has no support 1 Total 9 SAD PERSONS Done? yes (Emmanuel Cedillo) Progress Differential Diagnosis: dementia, drug intoxication, drug overdose, drug withdrawal, electrolyte abnormality Plan of Care: Orders Procedure Date/time Status Regular Diet 06/18 B Active Continuous Observation Monitor 06/17 1841 Active CIWA 06/17 1841 Active URINE DRUG SCREEN FOR ER ONLY 06/17 1841 Complete URINALYSIS 06/17 1841 Complete MAGNESIUM 06/17 1841 Complete ETHANOL 06/17 1841 Complete COMPREHENSIVE METABOLIC PANEL 06/17 1841 Complete CBC WITHOUT DIFFERENTIAL 06/17 1841 Complete ED CRISIS PSYCH CONSULT 06/17 1841 Active Laboratory Tests 06/17/182024: Urine Opiates Screen < 100, Methadone Screen < 40, Barbiturate Screen < 60, Ur Phencyclidine Scrn < 6.00, Amphetamines Screen < 100, U Benzodiazepines Scrn > 800 H, Urine Cocaine Screen < 50, Urine Cannabis Screen < 5.00, Urine Color YEL , Urine Clarity CLEAR, Urine pH 6.0, Ur Specific [place] 1.025, Urine Protein NEG, Urine Ketones NEG, Urine Nitrite NEG, Urine Bilirubin NEG, Urine Urobilinogen 0.2, Ur Leukocyte Esterase NEG, Ur Microscopic EXAM NOT REQUIRED, Urine Hemoglobin NEG, Urine Glucose NEG 06/17/18 1940: Anion Gap 10, Estimated GFR > 60, BUN/Creatinine Ratio 22.7, Glucose 198 H, Calcium 8.7, Magnesium 2.3, Total Bilirubin 0.3, AST 33, ALT 52, Alkaline Phosphatase 72, Total Protein 6.3, Albumin 3.8, Globulin 2.5, Albumin/Globulin Ratio 1.5, CBC w Diff NO MAN DIFF REQ, RBC 4.02 L, MCV 93.1, MCH 32.3 H, MCHC 34.7, RDW 14.4, MPV 8.1, Gran % 62.5, Lymphocytes % 18.8 L, Monocytes % 16.1 H , Eosinophils % 1.9, Basophils % 0.7, Absolute Granulocytes 2.4, Absolute Lymphocytes 0.7 L, Absolute Monocytes 0.6, Absolute Eosinophils 0.1, Absolute Basophils 0, Serum Alcohol 275.0 Patient arrives heavily intoxicated reporting suicidal and homicidal ideation. Is also requesting detox. He was seen here yesterday requesting detox and was discharged after not meeting criteria. He has no history of withdrawal seizures. He does not have a plan. Labs CIWA ordered. Patient will see crisis. Blood work shows an alcohol level 275. Labs otherwise unremarkable. Patient will be held over in the emergency Department: Pending crisis patient SIGNED OUT TO Rico Villeda DO PENDING CRISIS. Hand-Off Endorsed To: Rico Villeda DO Endorsed Time: 0 Pending: consult (CRISI) (Emmanuel Cedillo) Departure Departure Disposition: HOME OR SELF CARE Condition: Stable Clinical Impression Primary Impression: Suicidal ideation Secondary Impressions: Alcohol intoxication Qualifiers: Complication of substance-induced condition: uncomplicated Qualified Code: F10.920 - Alcohol use, unspecified with intoxication, uncomplicated Homicidal ideation Referrals: Henny Gutierrez MD (PCP/Family) Departure Forms: Customer Survey General Discharge Information (Emmanuel Cedillo) Departure Comments 06/18/18 5:14 AM The patient is awake alert oriented 3. No ataxia, he denies any interest in detox at this time. He denies any suicidal or homicidal ideation. He said he made the statements when he was intoxicated. I do not feel he has suicidal ideation at this time. He was encouraged to get help for his alcohol problem in detox referrals were given. (Rico Villeda DO)
[2018-06-18 04:49] VITALS: BP 132/78
== END 2018-06-18 05:32 ==
LOC: ERH 18:33
PROVIDERS: Physician Assistant Medical
DX: R45.851 Suicidal ideations (principal)
CPT/HCPCS: 80307; 81003; G0480

== ENCOUNTER 2018-06-19 20:01 | Emergency (ER) | payer OTHER ==
[~2018-06-19] VITALS: Ht 182.9 cm; Wt 120.2 kg
--- NOTE | 2018-06-19 20:49 | ED GENERAL ADULT ---
See Addendum History of Present Illness General Chief Complaint: Psychiatric Related Complaint Stated Complaint: +SI, ETOH Source: patient, old records Exam Limitations: intoxication Vital Signs & Intake/Output Vital Signs & Intake/Output Vital Signs Date Time Temp Pulse Resp B/P B/P Pulse O2 O2 Flow FiO2 Mean Ox Delivery Rate 06/19 2253 98.6 99 18 104/51 95 Room Air 06/19 2018 97.0 103 18 165/102 98 Room Air Allergies Coded Allergies: No Known Allergies (04/27/16) Reconcile Medications Carbamazepine (Tegretol XR) 200 MG TAB.ER.12H 1 TAB PO BID UNKN (Reported) Gabapentin (Neurontin) 300 MG CAPSULE 2 CAP PO BID ANXIETY (Reported) Gabapentin 300 MG CAPSULE 3 CAP PO TID ANXIETY (Reported) Lisinopril 10 MG TABLET 1 TAB PO DAILY HTN [place] Carbonate 600 MG CAPSULE 1 CAP PO DAILY MENTAL HEALTH (Reported) Lorazepam 0.5 MG TABLET 1 TAB PO QPM SLEEP HELP (Reported) LORazepam (Ativan) 1 MG TAB 2 TAB PO TID PRN alcohol withdrawal day 1: 2 tab 3X/day day 2: 1 TAB 4x/day day 3: 1 TAB 3x/day day 4: 1 TAB 2X/day day 5 :1 TAB Melatonin 10 MG TABLET 1 TAB PO QPM SUPPLEMENT (Reported) Metformin HCl 500 MG TABLET 500 MG PO DAILY DM Naltrexone HCl 50 MG TABLET 1 TAB PO QAM MENTAL HEALTH (Reported) Rosuvastatin Calcium (Crestor) 20 MG TABLET 1 TAB PO DAILY CHOL (Reported) Sertraline HCl (Zoloft) 100 MG TABLET 1 TAB PO DAILY anxiety/depression Trazodone HCl 150 MG TABLET 1 TAB PO QPM MENTAL HEALTH/SLEEP (Reported) Triage Note: 52M RETURNS TO ED FOR +SI AND ETOH INTOXICATION. WAS DISCHARGED YESTERDAY HE DID NOT WANT TO STAY FOR ADMISSION OR BEDSEARCH BUT WANTS TO NOW. COOPERATIVE ON ARRIVAL. LAST DRINK ONE HOUR AGO. DENIES W/D SEIZURE HX. HYPERTENSIVE IN TRIAGE. BLISTER TO FOOT Triage Nurses Notes Reviewed? yes HPI: This is a 52-year-old male with history of chronic alcoholism, depression, hypertension, type 2 diabetes complicated by neuropathy, presented to the emergency department with alcohol intoxication and request for detox, something that he has done several times this past week. He returns today acutely intoxicated with alcohol, denies any coingestions or recent trauma/illness/ travel. He states that he needs help and is worried that he might kill himself. He denies any self-harm today. He states that his fiance left him recently and he has been feeling hopeless. He has been living in a motel. Patient also complains of left foot pain, having walked for several miles today his flip-flops and developed what he describes as blisters. (Andres Lai MD) Past History Travel History Traveled to [place] past 21 day No Medical History Any Pertinent Medical History? 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 No (Andres Lai MD) Review of Systems Review of Systems Constitutional: Reports: no symptoms. EENTM: Reports: no symptoms. Respiratory: Reports: no symptoms. Cardiovascular: Reports: no symptoms. GI: Reports: no symptoms. Genitourinary: Reports: no symptoms. Musculoskeletal: Reports: see HPI. Skin: Reports: no symptoms. Neurological/Psychological: Reports: see HPI, anxiety. Hematologic/Endocrine: Reports: no symptoms. Comments Review of systems limited by intoxication. (Andres Lai MD) Physical Exam Physical Exam General Appearance: well developed/nourished, anxious, intoxicated, obese Head: atraumatic, normal appearance Eyes: Bilateral: normal appearance, PERRL, EOMI. Ears, Nose, Throat: normal pharynx, normal ENT inspection Neck: normal inspection, supple, full range of motion Respiratory: normal breath sounds, chest non-tender, no respiratory distress, lungs clear Cardiovascular: regular rate/rhythm, edema, normal peripheral pulses Gastrointestinal: soft, non-tender Skin: intact, normal color Comments: Patient smells of EtOH, has slurred speech. Endorses some passive suicidal ideation. Patient has ulcerations and blisters to the left foot with no surrounding erythema. No discharge Core Measures ACS in differential dx? No CVA/TIA Diagnosis: No Sepsis Present: No Sepsis Focused Exam Completed? No (Andres Lai MD) Progress Differential Diagnoses I considered the following diagnoses in my evaluation of the patient: Alcohol intoxication with some suicidality in the setting of acute intoxication, lower suspicion for acute polysubstance abuse or acute traumatic process. Some concern for metabolic derangement given the patient is a chronic alcoholic with underlying diabetes and poor compliance with baseline medications. Plan of Care: Orders Procedure Date/time Status Regular Diet 06/20 B Active Continuous Observation Monitor 06/19 2014 Active CIWA 06/19 2014 Active URINE DRUGS OF ABUSE 06/19 2014 Active MAGNESIUM 06/19 2014 Complete ETHANOL 06/19 2014 Complete COMPREHENSIVE METABOLIC PANEL 06/19 2014 Complete CBC WITHOUT DIFFERENTIAL 06/19 2014 Complete ED CRISIS PSYCH CONSULT 06/19 2014 Active Laboratory Tests 06/19/18 2210: Anion Gap 8, Estimated GFR > 60, BUN/Creatinine Ratio 20.9, Glucose 120 H, Calcium 8.3 L, Magnesium 2.1, Total Bilirubin 0.3, AST 28, ALT 43, Alkaline Phosphatase 68, Total Protein 5.9 L, Albumin 3.6, Globulin 2.3, Albumin/ Globulin Ratio 1.6, CBC w Diff NO MAN DIFF REQ, RBC 3.90 L, MCV 92.4, MCH 32.3 H, MCHC 34.9, RDW 13.9, MPV 7.0 L, Gran % 71.9, Lymphocytes % 10.9 L, Monocytes % 14.7 H, Eosinophils % 1.1, Basophils % 1.4, Absolute Granulocytes 3.5, Absolute Lymphocytes 0.5 L, Absolute Monocytes 0.7 H, Absolute Eosinophils 0.1, Absolute Basophils 0.1, Serum Alcohol 171.0 Plan for labs including ethanol, LFTs. Plan for CIWA, continuous observation and monitoring and ED crisis consultation for suicidality. Care signed out to Dr. Villeda at end of shift. Initial ED EKG: none (Andres Lai MD) Departure Departure Time of Disposition: 2110 Disposition: STILL A PATIENT Condition: Stable Clinical Impression Primary Impression: Alcohol intoxication Secondary Impressions: Passive suicidal ideations Referrals: Henny Gutierrez MD (PCP/Family) Departure Forms: Customer Survey General Discharge Information (Andres Lai MD) Resident Co-Sign Statement Statement: ED Attending supervision documentation- [] I saw and evaluated the patient. I have also reviewed all the pertinent lab results and diagnostic results. I agree with the findings and the plan of care as documented in the Resident's documentation. [X] I have reviewed the ED Record and agree with the Resident's documentation. [] Additions or exceptions (if any) to the Resident's note and plan are summarized below: [] (Rico Villeda DO) Critical Care Note Critical Care Note Critical Care Time: non-applicable (Andres Lai MD)
[2018-06-19 22:17] LABS: ABSOLUTE BASOPHIL COUNT 0.1 /CUMM (0.0-0.2); ABSOLUTE EOSINOPHIL COUNT 0.1 /CUMM (0.0-0.7); ABSOLUTE GRANULOCYTE CT 3.5 /CUMM (1.4-6.5); ABSOLUTE LYMPH COUNT 0.5 /CUMM (1.2-3.4); ABSOLUTE MONOCYTE COUNT 0.7 /CUMM (0.10-0.60); BASOPHIL % 1.4 % (0.0-2.0); EOSINOPHIL % 1.1 % (0-5); GRANULOCYTE % 71.9 % (42.2-75.2); MEAN CORPUSCULAR HGB 32.3 PG (27.0-31.0); MEAN CORPUSCULAR HGB CONC 34.9 G/DL (33.0-37.0); MEAN CORPUSCULAR VOLUME 92.4 FL (80.0-94.0); PLATELET COUNT 225 /CUMM (130-400); RBC DISTRIBUTION WIDTH 13.9 % (11.5-14.5); WHITE BLOOD CELL COUNT 4.9 /CUMM (4.8-10.8)
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
[2018-06-20 21:06] LABS: LITHIUM < 0.2 mmol/L (0.6-1.2)
[2018-06-21 09:45] VITALS: BP 134/68
== END 2018-06-21 13:05 ==
LOC: ERH 20:01
PROVIDERS: Physician Assistant
DX: F10.129 Alcohol abuse with intoxication, unspecified (principal); R45.851 Suicidal ideations
CPT/HCPCS: 80307; G0463; G0480